=== PATIENT | male | born 1970 | race Caucasian/White ===

== ENCOUNTER 2019-11-02 03:31 | Inpatient (IN) | payer MEDICAID ==
[~2019-11-02] VITALS: Ht 167.6 cm; Wt 92.5 kg
[2019-11-02] MEDS ORDERED: IBUPROFEN 600MG TABLET PO STA (03:46)
[2019-11-02] MEDS ORDERED: SODIUM CHLORIDE 0.9% 1,000 ML IV ONE ×2 (03:46→13:43)
[2019-11-02 04:15] LABS: BASOPHILS % 0.6 % (0.0-2.0); EOSINOPHILS % 0.1 % (0.0-5.0); HEMATOCRIT. 40.3 % (42.0-52.0); LYMPHOCYTES % 16.1 % (20.0-50.0); MEAN CORPUSCULAR HEMOGLOBIN 26.1 pg (28.0-32.0); MEAN CORPUSCULAR VOLUME 81.1 fL (80.0-94.0); MEAN PLATELET VOLUME 7.4 fl (7.4-10.4); MONOCYTES % 3.4 % (2.0-8.0); NEUTROPHILS % 79.8 % (40.0-76.0); PLATELET 454 x1000/uL (130-400); RED BLOOD CELL COUNT 4.97 mill/uL (4.7-6.1); RED CELL DISTRIBUTION WIDTH 17.3 % (11.6-14.6)
[2019-11-02 04:17] LABS: CHLORIDE 101 mEq/L (98-107); PROTHROMBIN TIME 29.5 sec (9.6-11.0)
[2019-11-02] MEDS ORDERED: SODIUM CHLORIDE 0.9% 1000ML BAG (SEPSIS BOLUS) IV ONE (04:45)
[2019-11-02] MEDS ORDERED: LACTULOSE 20G/30ML UDC PO ONE (05:30)
[2019-11-02 05:38] LABS: CLARITY URINE TURBID (CLEAR); COLOR URINE DARK YELLOW (YELLOW); KETONES URINE NEGATIVE (NEGATIVE); LEUKOCYTE ESTERASE URINE NEGATIVE (NEGATIVE); NITRITE URINE NEGATIVE (NEGATIVE); OCCULT BLOOD URINE 2+ (NEGATIVE); PH URINE >=9.0 (4.5-8.0); PROTEIN URINE 3+ (NEGATIVE); SPECIFIC GRAVITY URINE 1.015 (1.005-1.030)
[2019-11-02] MEDS ORDERED: VANCOMYCIN 1 G PREMIX 200 ML IV SCH (06:30)
[2019-11-02] MEDS ORDERED: PIPERACILLIN/TAZOBACTAM 3.375GM/50ML PREMIX IV ONE (06:30)
[2019-11-02] MEDS ORDERED: IOHEXOL-300 100 ML BOTTLE ONE (06:45)
[2019-11-02] MEDS ORDERED: PIPERACILLIN/TAZ 3.375G PREMIX 50 ML IV SCH ×2 (07:00→14:00)
[2019-11-02] MEDS ORDERED: DIATR MEGLU/DIATRIZOATE SOLN 120ML ONE (12:29)
[2019-11-02] MEDS ORDERED: IOHEXOL-300 50 ML BOTTLE IV ONE (12:30)
[2019-11-02] MEDS ORDERED: ONDANSETRON HCL 4MG/2ML INJ IV PRN (12:45)
[2019-11-02] MEDS ORDERED: SODIUM CHLORIDE 0.9% 500 ML IV NR (13:42)
[2019-11-02 18:19] VITALS: BP 151/45
[2019-11-02 20:00] VITALS: BP 122/75
[2019-11-02] MEDS: ACETAMINOPHEN 325MG TABLET PO PRN (21:12)
[2019-11-02] MEDS: PIPERACILLIN/TAZOBACTAM 2.25 G in DEXTROSE 5% WATER 50 ML IV SCH (21:24)
[2019-11-02] MEDS: DEXT 5%/0.45% NACL 1000ML 1,000 ML IV SCH (21:32)
[2019-11-02 22:00] VITALS: BP 93/62
[2019-11-03] VITALS (11 sets, daily range): BP systolic 100–137; BP diastolic 50–65
[2019-11-03] MEDS: MORPHINE SULFATE 2 MG/ML CPJ (NOT FOR IM USE) IV PRN ×5 (00:39→18:30)
[2019-11-03] MEDS: PIPERACILLIN/TAZOBACTAM 2.25 G in DEXTROSE 5% WATER 50 ML IV SCH ×4 (01:12→20:34)
[2019-11-03] MEDS: DEXT 5%/0.45% NACL 1000ML 1,000 ML IV SCH ×3 (05:07→20:34)
[2019-11-03 06:27] LABS: BASOPHILS % 0.5 % (0.0-2.0); EOSINOPHILS % 0.5 % (0.0-5.0); HEMATOCRIT. 33.5 % (42.0-52.0); HEMOGLOBIN. 10.5 g/dL (14.0-18.0); LYMPHOCYTES % 15.2 % (20.0-50.0); MEAN CORPUSCULAR HEMOGLOBIN 25.5 pg (28.0-32.0); MEAN CORPUSCULAR VOLUME 81.4 fL (80.0-94.0); MEAN PLATELET VOLUME 7.6 fl (7.4-10.4); MONOCYTES % 4.9 % (2.0-8.0); NEUTROPHILS % 78.9 % (40.0-76.0); PLATELET 335 x1000/uL (130-400); RED BLOOD CELL COUNT 4.12 mill/uL (4.7-6.1); RED CELL DISTRIBUTION WIDTH 17.3 % (11.6-14.6)
[2019-11-03 06:43] LABS: CHLORIDE 107 mEq/L (98-107)
[2019-11-03] MEDS: ACETAMINOPHEN 325MG TABLET PO PRN ×2 (14:20→20:34)
[2019-11-03] MEDS ORDERED: VANCOMYCIN 1250MG in DEXTROSE 5% WATER 250ML IV SCH (17:00)
[2019-11-04] VITALS (12 sets, daily range): BP systolic 89–131; BP diastolic 32–68
[2019-11-04] MEDS: PIPERACILLIN/TAZOBACTAM 2.25 G in DEXTROSE 5% WATER 50 ML IV SCH ×5 (01:34→21:00)
[2019-11-04] MEDS: DEXT 5%/0.45% NACL 1000ML 1,000 ML IV SCH ×2 (04:43→18:54)
[2019-11-04] MEDS ORDERED: VANCOMYCIN 1 G PREMIX 200 ML IV SCH (05:00)
[2019-11-04] MEDS: ACETAMINOPHEN 325MG TABLET PO PRN (05:25)
[2019-11-04 09:49] LABS: BASOPHILS % 0.3 % (0.0-2.0); EOSINOPHILS % 0.5 % (0.0-5.0); HEMATOCRIT. 28.7 % (42.0-52.0); HEMOGLOBIN. 9.2 g/dL (14.0-18.0); LYMPHOCYTES % 7.9 % (20.0-50.0); MEAN CORPUSCULAR HEMOGLOBIN 25.8 pg (28.0-32.0); MEAN CORPUSCULAR VOLUME 80.6 fL (80.0-94.0); MEAN PLATELET VOLUME 7.5 fl (7.4-10.4); MONOCYTES % 3.5 % (2.0-8.0); NEUTROPHILS % 87.8 % (40.0-76.0); PLATELET 247 x1000/uL (130-400); RED BLOOD CELL COUNT 3.57 mill/uL (4.7-6.1); RED CELL DISTRIBUTION WIDTH 17.3 % (11.6-14.6)
[2019-11-04 09:54] LABS: CHLORIDE 109 mEq/L (98-107)
[2019-11-04 10:32] LABS: INR 3.6; PROTHROMBIN TIME 34.7 sec (9.6-11.0)
[2019-11-04] MEDS ORDERED: POTASSIUM CHLORIDE INJ 40 MEQ in DEXT 5% WATER 250 ML IV NR (13:00)
[2019-11-04] MEDS ORDERED: HYDROCODONE/ACETAMINOPHEN 5/325MG TABLET PO PRN (13:15)
[2019-11-04] MEDS: VANCOMYCIN 1 G PREMIX 200 ML IV SCH (18:40)
[2019-11-04] MEDS: MEROPENEM 1,000 MG in SODIUM CHLORIDE 0.9% 100 ML IV SCH (23:12)
[2019-11-05] VITALS (12 sets, daily range): BP systolic 112–154; BP diastolic 67–78
[2019-11-05] MEDS: VANCOMYCIN 1 G PREMIX 200 ML IV SCH ×2 (00:30→09:03)
[2019-11-05 08:57] LABS: BASOPHILS % 0.1 % (0.0-2.0); EOSINOPHILS % 1.6 % (0.0-5.0); HEMATOCRIT. 27.5 % (42.0-52.0); MEAN CORPUSCULAR HEMOGLOBIN 25.8 pg (28.0-32.0); MEAN CORPUSCULAR VOLUME 78.8 fL (80.0-94.0); MEAN PLATELET VOLUME 7.1 fl (7.4-10.4); MONOCYTES % 5.8 % (2.0-8.0); NEUTROPHILS % 81.5 % (40.0-76.0); PLATELET 316 x1000/uL (130-400); RED BLOOD CELL COUNT 3.48 mill/uL (4.7-6.1); RED CELL DISTRIBUTION WIDTH 17.1 % (11.6-14.6)
[2019-11-05] MEDS ORDERED: ENOXAPARIN 100MG/ML SYR SUBCUT SCH (09:00)
[2019-11-05] MEDS: MEROPENEM 1,000 MG in SODIUM CHLORIDE 0.9% 100 ML IV SCH ×2 (09:03→20:11)
[2019-11-05] MEDS: PANTOT AC/MIN OIL/PET HY-PHL OINT (AQUAPHOR) TOP SCH (09:04)
[2019-11-05 09:08] LABS: INR 3.9; PROTHROMBIN TIME 38.1 sec (9.6-11.0)
[2019-11-05 10:21] LABS: CHLORIDE 108 mEq/L (98-107)
[2019-11-05] MEDS ORDERED: LINEZOLID 600 MG PREMIX 300 ML IV SCH (12:00)
[2019-11-05] MEDS ORDERED: POTASSIUM CHLORIDE 20MEQ TABLET SR PO SCH (12:00)
[2019-11-05] MEDS ORDERED: POTASSIUM CHLORIDE INJ 40 MEQ in DEXT 5% WATER 250 ML IV SCH (13:00)
[2019-11-05] MEDS: GABAPENTIN 300MG CAPSULE PO SCH ×2 (13:19→21:52)
[2019-11-05] MEDS: BACLOFEN 10MG TABLET PO SCH ×2 (13:19→21:52)
[2019-11-05] MEDS: SIMETHICONE 80MG TABLET CHEW PO PRN ×2 (13:20→21:52)
[2019-11-05] MEDS: BISACODYL 10MG SUPP PR PRN (13:20)
[2019-11-05] MEDS ORDERED: MAGNESIUM 2 G PREMIX 50 ML IV SCH (14:00)
[2019-11-05] MEDS: DEXT 5%/0.45% NACL 1000ML 1,000 ML IV SCH (16:40)
[2019-11-05] MEDS: LINEZOLID 600 MG PREMIX 300 ML IV SCH (21:52)
[2019-11-06] VITALS (9 sets, daily range): BP systolic 107–134; BP diastolic 60–76
[2019-11-06] MEDS: MORPHINE SULFATE 2 MG/ML CPJ (NOT FOR IM USE) IV PRN ×4 (02:14→22:29)
[2019-11-06] MEDS: GABAPENTIN 300MG CAPSULE PO SCH ×3 (05:02→22:29)
[2019-11-06] MEDS: BACLOFEN 10MG TABLET PO SCH ×3 (05:02→22:29)
[2019-11-06 06:41] LABS: BASOPHILS % 0.5 % (0.0-2.0); EOSINOPHILS % 2.9 % (0.0-5.0); HEMATOCRIT. 29.4 % (42.0-52.0); HEMOGLOBIN. 9.4 g/dL (14.0-18.0); LYMPHOCYTES % 17.1 % (20.0-50.0); MEAN CORPUSCULAR HEMOGLOBIN 25.5 pg (28.0-32.0); MEAN CORPUSCULAR VOLUME 79.3 fL (80.0-94.0); MEAN PLATELET VOLUME 7.7 fl (7.4-10.4); MONOCYTES % 7.1 % (2.0-8.0); NEUTROPHILS % 72.4 % (40.0-76.0); PLATELET 382 x1000/uL (130-400); RED BLOOD CELL COUNT 3.71 mill/uL (4.7-6.1); RED CELL DISTRIBUTION WIDTH 17.3 % (11.6-14.6)
[2019-11-06 06:49] LABS: PROTHROMBIN TIME 40.1 sec (9.6-11.0)
[2019-11-06 07:18] LABS: CHLORIDE 106 mEq/L (98-107)
[2019-11-06 08:10] LABS: INR 4.2
[2019-11-06] MEDS: MEROPENEM 1,000 MG in SODIUM CHLORIDE 0.9% 100 ML IV SCH ×2 (08:41→20:43)
[2019-11-06] MEDS: PANTOT AC/MIN OIL/PET HY-PHL OINT (AQUAPHOR) TOP SCH (08:42)
[2019-11-06] MEDS ORDERED: POTASSIUM CHLORIDE 20MEQ TABLET SR PO SCH (10:15)
[2019-11-06] MEDS: LINEZOLID 600 MG PREMIX 300 ML IV SCH ×2 (10:32→22:29)
[2019-11-06] MEDS: SIMETHICONE 80MG TABLET CHEW PO PRN ×2 (11:47→22:38)
[2019-11-06] MEDS: BISACODYL 10MG SUPP PR PRN (12:06)
[2019-11-06 12:53] LABS: PHOSPHORUS 2.1 mg/dL (2.5-4.9)
[2019-11-06] MEDS: DEXT 5%/0.45% NACL 1000ML 1,000 ML IV SCH (14:22)
[2019-11-06] MEDS ORDERED: MAGNESIUM 2 G PREMIX 50 ML IV NR (18:00)
[2019-11-06] MEDS ORDERED: POTASSIUM PHOS,M-BASIC-D-BASIC 20 MMOL in DEXT 5% WATER 243.3333 ML IV NR (18:00)
[2019-11-07] VITALS: BP 103/60
[2019-11-07] MEDS: ACETAMINOPHEN 325MG TABLET PO PRN (00:48)
[2019-11-07 04:10] VITALS: BP 108/58
[2019-11-07] MEDS: MORPHINE SULFATE 2 MG/ML CPJ (NOT FOR IM USE) IV PRN ×3 (04:31→15:36)
[2019-11-07] MEDS: BACLOFEN 10MG TABLET PO SCH ×3 (05:53→21:49)
[2019-11-07] MEDS: GABAPENTIN 300MG CAPSULE PO SCH ×3 (05:53→21:53)
[2019-11-07 08:00] VITALS: BP 105/62
[2019-11-07] MEDS: PANTOT AC/MIN OIL/PET HY-PHL OINT (AQUAPHOR) TOP SCH (09:00)
[2019-11-07 09:24] LABS: BASOPHILS % 0.4 % (0.0-2.0); EOSINOPHILS % 4.4 % (0.0-5.0); HEMATOCRIT. 32.2 % (42.0-52.0); HEMOGLOBIN. 10.3 g/dL (14.0-18.0); LYMPHOCYTES % 15.6 % (20.0-50.0); MEAN CORPUSCULAR HEMOGLOBIN 25.3 pg (28.0-32.0); MEAN CORPUSCULAR VOLUME 79.3 fL (80.0-94.0); MEAN PLATELET VOLUME 7.5 fl (7.4-10.4); MONOCYTES % 7.6 % (2.0-8.0); PLATELET 388 x1000/uL (130-400); RED BLOOD CELL COUNT 4.07 mill/uL (4.7-6.1); RED CELL DISTRIBUTION WIDTH 17.3 % (11.6-14.6)
[2019-11-07 09:27] LABS: CHLORIDE 107 mEq/L (98-107)
[2019-11-07 09:46] LABS: INR 3.4; PROTHROMBIN TIME 33.2 sec (9.6-11.0)
[2019-11-07 10:00] VITALS: BP 111/60
[2019-11-07] MEDS: MEROPENEM 1,000 MG in SODIUM CHLORIDE 0.9% 100 ML IV SCH ×2 (10:10→23:40)
[2019-11-07] MEDS: LINEZOLID 600 MG PREMIX 300 ML IV SCH ×2 (10:10→21:53)
[2019-11-07] MEDS ORDERED: DIATR MEGLU/DIATRIZOATE SOLN 30ML PO SCH (11:30)
[2019-11-07] MEDS ORDERED: IOHEXOL-300 50 ML BOTTLE IV ONE (12:25)
[2019-11-07] MEDS: SIMETHICONE 80MG TABLET CHEW PO PRN (14:42)
[2019-11-07 16:00] VITALS: BP 128/73
[2019-11-07] MEDS ORDERED: BISACODYL 10MG SUPP PR PRN (19:00)
[2019-11-07] MEDS ORDERED: BISACODYL 10MG SUPP PR NR (19:23)
[2019-11-07 20:00] VITALS: BP 113/63
[2019-11-08] VITALS (13 sets, daily range): BP systolic 97–138; BP diastolic 51–80
[2019-11-08] MEDS: BACLOFEN 10MG TABLET PO SCH ×2 (06:15→14:22)
[2019-11-08] MEDS: GABAPENTIN 300MG CAPSULE PO SCH ×2 (06:15→14:18)
[2019-11-08] MEDS: SIMETHICONE 80MG TABLET CHEW PO PRN (06:21)
[2019-11-08] MEDS: MEROPENEM 1,000 MG in SODIUM CHLORIDE 0.9% 100 ML IV SCH ×2 (08:24→20:23)
[2019-11-08] MEDS: PANTOT AC/MIN OIL/PET HY-PHL OINT (AQUAPHOR) TOP SCH (08:25)
[2019-11-08] MEDS ORDERED: POTASSIUM CHLORIDE INJ 40 MEQ in DEXT 5% WATER 250 ML IV SCH (10:00)
[2019-11-08 10:05] LABS: BASOPHILS % 0.5 % (0.0-2.0); EOSINOPHILS % 4.5 % (0.0-5.0); HEMATOCRIT. 29.2 % (42.0-52.0); HEMOGLOBIN. 9.5 g/dL (14.0-18.0); LYMPHOCYTES % 13.6 % (20.0-50.0); MEAN CORPUSCULAR HEMOGLOBIN 25.6 pg (28.0-32.0); MEAN CORPUSCULAR VOLUME 78.6 fL (80.0-94.0); MEAN PLATELET VOLUME 6.9 fl (7.4-10.4); MONOCYTES % 6.2 % (2.0-8.0); NEUTROPHILS % 75.2 % (40.0-76.0); PLATELET 459 x1000/uL (130-400); RED BLOOD CELL COUNT 3.72 mill/uL (4.7-6.1); RED CELL DISTRIBUTION WIDTH 17.6 % (11.6-14.6)
[2019-11-08 10:08] LABS: CHLORIDE 106 mEq/L (98-107); INR 2.7; PROTHROMBIN TIME 26.3 sec (9.6-11.0)
[2019-11-08] MEDS: LINEZOLID 600 MG PREMIX 300 ML IV SCH (11:27)
[2019-11-08] MEDS: MORPHINE SULFATE 2 MG/ML CPJ (NOT FOR IM USE) IV PRN ×3 (12:21→20:23)
[2019-11-08] MEDS: DIPHENHYDRAMINE 25MG CAPSULE PO PRN ×2 (14:17→20:55)
== END 2019-11-08 23:19 | DRG 720 ==
LOC: ER 03:31 → EDBEDREQ 06:51 → EDBEDREQTM 06:51 → ENRESERV 16:09 → 5EST 18:06
PROVIDERS: ADMIT Internal Medicine Nephrology; ATTEND Internal Medicine Nephrology
DX: A41.9 Sepsis, unspecified organism (principal); N17.0 Acute kidney failure with tubular necrosis; E43 Unspecified severe protein-calorie malnutrition; E87.2 Acidosis; D68.9 Coagulation defect, unspecified; G82.20 Paraplegia, unspecified; E87.1 Hypo-osmolality and hyponatremia; I10 Essential (primary) hypertension; E66.9 Obesity, unspecified; N32.89 Other specified disorders of bladder; E87.6 Hypokalemia; K59.8 Other specified functional intestinal disorders; Z68.32 Body mass index [BMI] 32.0-32.9, adult; Z71.3 Dietary counseling and surveillance
CPT/HCPCS: 36415; 71045; 74176; 74177; 76770; 80048; 80053; 80202; 81003; 82962; 83036; 83605; 83735; 84100; 84134; 84145; 84484; 85025; 87070; 87077; 87186; 87804; 93005; 93306; 93970; 96365; 99291; A6261; J2020; J2185; J2270; J2405; J2543; J3370; J3475; J3480; J3490; J7030; J7040; J7050; J7060; Q0163; Q9963; Q9967

== ENCOUNTER 2019-11-09 15:45 | Inpatient (IN) | payer MEDICAID ==
[~2019-11-09] VITALS: Ht 162.6 cm; Wt 71.7 kg
[2019-11-09] MEDS ORDERED: LINEZOLID 600 MG PREMIX 300 ML IV STA (16:48)
[2019-11-09] MEDS ORDERED: MEROPENEM 1,000 MG in SODIUM CHLORIDE 0.9% 100 ML IV STA (16:48)
[2019-11-09] MEDS ORDERED: SODIUM CHLORIDE 0.9% 1000ML BAG (SEPSIS BOLUS) IV ONE (17:00)
[2019-11-09 18:48] LABS: BASOPHILS % 0.3 % (0.0-2.0); EOSINOPHILS % 3.8 % (0.0-5.0); HEMATOCRIT. 31.4 % (42.0-52.0); HEMOGLOBIN. 10.1 g/dL (14.0-18.0); LYMPHOCYTES % 17.3 % (20.0-50.0); MEAN CORPUSCULAR HEMOGLOBIN 25.5 pg (28.0-32.0); MEAN CORPUSCULAR VOLUME 79.1 fL (80.0-94.0); MEAN PLATELET VOLUME 7.4 fl (7.4-10.4); MONOCYTES % 4.8 % (2.0-8.0); NEUTROPHILS % 73.8 % (40.0-76.0); PLATELET 563 x1000/uL (130-400); RED BLOOD CELL COUNT 3.97 mill/uL (4.7-6.1); RED CELL DISTRIBUTION WIDTH 17.7 % (11.6-14.6)
[2019-11-09 18:55] LABS: CHLORIDE 105 mEq/L (98-107)
[2019-11-09 19:09] LABS: CLARITY URINE CLEAR (CLEAR); COLOR URINE YELLOW (YELLOW); KETONES URINE 2+ (NEGATIVE); LEUKOCYTE ESTERASE URINE TRACE (NEGATIVE); NITRITE URINE NEGATIVE (NEGATIVE); OCCULT BLOOD URINE NEGATIVE (NEGATIVE); PH URINE 7.5 (4.5-8.0); PROTEIN URINE 2+ (NEGATIVE); SPECIFIC GRAVITY URINE 1.013 (1.005-1.030); UROBILINOGEN URINE 0.2 E.U./dL (0.2-1.0)
[2019-11-09] MEDS ORDERED: ONDANSETRON HCL 4MG/2ML INJ IV STA (19:09)
[2019-11-09] MEDS ORDERED: MORPHINE SULFATE 4 MG/ML CPJ (NOT FOR IM USE) IV STA (19:09)
[2019-11-09] MEDS ORDERED: ONDANSETRON HCL 4MG/2ML INJ IV PRN (23:45)
[2019-11-09] MEDS ORDERED: MAGNESIUM/ALUMINUM HYDROXIDE/SIMETHICONE 30ML UDC PO PRN (23:45)
[2019-11-09] MEDS ORDERED: IPRATROPIUM/ALBUTEROL 0.5-3(2.5)MG/3ML NEB NEB PRN (23:45)
[2019-11-09] MEDS ORDERED: ACETAMINOPHEN 325MG TABLET PO PRN (23:45)
[2019-11-09] MEDS ORDERED: CLONIDINE 0.1MG TABLET PO PRN (23:45)
[2019-11-10] VITALS: BP 122/76
[2019-11-10 01:17] LABS: CHLORIDE 104 mEq/L (98-107)
[2019-11-10] MEDS ORDERED: LINE600T11 PO (01:27)
[2019-11-10] MEDS ORDERED: MERO500V IV (01:28)
[2019-11-10] MEDS ORDERED: GABA300C PO (01:29)
[2019-11-10] MEDS ORDERED: BACL-141 PO (01:29)
[2019-11-10] MEDS ORDERED: SIME180C47 PO (01:31)
[2019-11-10] MEDS: MEROPENEM 1,000 MG in SODIUM CHLORIDE 0.9% 100 ML IV SCH ×3 (04:32→23:15)
[2019-11-10] MEDS: HYDROCODONE/ACETAMINOPHEN 5/325MG TABLET PO PRN ×4 (04:50→22:58)
[2019-11-10] MEDS ORDERED: LINEZOLID 600 MG PREMIX 300 ML IV SCH (06:00)
[2019-11-10 06:16] LABS: BASOPHILS % 0.4 % (0.0-2.0); EOSINOPHILS % 5.3 % (0.0-5.0); HEMATOCRIT. 30.8 % (42.0-52.0); HEMOGLOBIN. 9.9 g/dL (14.0-18.0); LYMPHOCYTES % 15.3 % (20.0-50.0); MEAN CORPUSCULAR HEMOGLOBIN 25.3 pg (28.0-32.0); MEAN CORPUSCULAR VOLUME 78.5 fL (80.0-94.0); MEAN PLATELET VOLUME 6.6 fl (7.4-10.4); MONOCYTES % 6.7 % (2.0-8.0); NEUTROPHILS % 72.3 % (40.0-76.0); PLATELET 580 x1000/uL (130-400); RED BLOOD CELL COUNT 3.92 mill/uL (4.7-6.1); RED CELL DISTRIBUTION WIDTH 17.6 % (11.6-14.6)
[2019-11-10 07:59] VITALS: BP 113/75
[2019-11-10 12:00] VITALS: BP 110/53
[2019-11-10] MEDS ORDERED: SIMETHICONE 80MG TABLET CHEW PO PRN (13:00)
[2019-11-10] MEDS ORDERED: PIPERACILLIN/TAZOBACTAM 3.375 G in DEXT 5% WATER 100 ML IV SCH (13:00)
[2019-11-10] MEDS: BACLOFEN 10MG TABLET PO SCH ×2 (13:49→21:40)
[2019-11-10] MEDS: GABAPENTIN 300MG CAPSULE PO SCH ×2 (13:49→17:34)
[2019-11-10 16:00] VITALS: BP 110/50
[2019-11-10] MEDS: SIMETHICONE 80MG TABLET CHEW PO PRN (16:09)
[2019-11-10] MEDS: DIPHENHYDRAMINE 25MG CAPSULE PO PRN ×2 (16:09→22:30)
[2019-11-10] MEDS: LINEZOLID 600 MG PREMIX 300 ML IV SCH (18:14)
[2019-11-10 20:00] VITALS: BP 96/56
[2019-11-10] MEDS ORDERED: BISACODYL 10MG SUPP PR NR (22:00)
[2019-11-11 00:18] VITALS: BP 95/51
[2019-11-11 04:00] VITALS: BP 117/61
[2019-11-11] MEDS: BACLOFEN 10MG TABLET PO SCH ×3 (05:15→21:22)
[2019-11-11] MEDS: HYDROCODONE/ACETAMINOPHEN 5/325MG TABLET PO PRN ×4 (05:15→22:37)
[2019-11-11] MEDS: ENOXAPARIN 40MG/0.4ML SYR SUBCUT SCH (05:15)
[2019-11-11] MEDS: MEROPENEM 1,000 MG in SODIUM CHLORIDE 0.9% 100 ML IV SCH ×2 (06:17→14:08)
[2019-11-11] MEDS: LINEZOLID 600 MG PREMIX 300 ML IV SCH (06:28)
[2019-11-11] MEDS: DIPHENHYDRAMINE 25MG CAPSULE PO PRN ×3 (06:55→22:37)
[2019-11-11 08:00] VITALS: BP 108/71
[2019-11-11] MEDS: GABAPENTIN 300MG CAPSULE PO SCH ×3 (09:34→18:12)
[2019-11-11] MEDS: SIMETHICONE 80MG TABLET CHEW PO PRN ×2 (09:59→18:40)
[2019-11-11 12:00] VITALS: BP 106/10
[2019-11-11 16:00] VITALS: BP 102/66
[2019-11-11 20:00] VITALS: BP 112/81
[2019-11-12] VITALS: BP 96/75
[2019-11-12 04:00] VITALS: BP 100/77
[2019-11-12] MEDS: BISACODYL 10MG SUPP PR PRN (05:07)
[2019-11-12] MEDS: BACLOFEN 10MG TABLET PO SCH ×3 (05:07→21:16)
[2019-11-12] MEDS: DIPHENHYDRAMINE 25MG CAPSULE PO PRN ×3 (05:59→21:17)
[2019-11-12] MEDS: HYDROCODONE/ACETAMINOPHEN 5/325MG TABLET PO PRN ×3 (06:00→21:17)
[2019-11-12 07:57] LABS: CHLORIDE 105 mEq/L (98-107)
[2019-11-12 08:00] VITALS: BP 114/98
[2019-11-12] MEDS: GABAPENTIN 300MG CAPSULE PO SCH ×3 (09:02→17:55)
[2019-11-12] MEDS: ENOXAPARIN 40MG/0.4ML SYR SUBCUT SCH (09:03)
[2019-11-12] MEDS: PANTOT AC/MIN OIL/PET HY-PHL OINT (AQUAPHOR) TOP SCH (09:04)
[2019-11-12] MEDS: NYSTATIN POWDER 15GM TOP SCH ×3 (09:04→17:55)
[2019-11-12 12:34] LABS: BASOPHILS % 0.5 % (0.0-2.0); EOSINOPHILS % 5.2 % (0.0-5.0); HEMATOCRIT. 30.2 % (42.0-52.0); HEMOGLOBIN. 9.9 g/dL (14.0-18.0); LYMPHOCYTES % 18.2 % (20.0-50.0); MEAN CORPUSCULAR HEMOGLOBIN 25.9 pg (28.0-32.0); MEAN CORPUSCULAR VOLUME 79.3 fL (80.0-94.0); MEAN PLATELET VOLUME 6.5 fl (7.4-10.4); MONOCYTES % 6.9 % (2.0-8.0); NEUTROPHILS % 69.2 % (40.0-76.0); PLATELET 558 x1000/uL (130-400); RED BLOOD CELL COUNT 3.81 mill/uL (4.7-6.1); RED CELL DISTRIBUTION WIDTH 17.8 % (11.6-14.6)
[2019-11-12 16:00] VITALS: BP 120/62
[2019-11-12 20:00] VITALS: BP 112/72
[2019-11-13] VITALS: BP 115/76
[2019-11-13 04:00] VITALS: BP 118/72
[2019-11-13] MEDS: BISACODYL 10MG SUPP PR PRN (05:38)
[2019-11-13] MEDS: DIPHENHYDRAMINE 25MG CAPSULE PO PRN ×3 (05:38→21:58)
[2019-11-13] MEDS: HYDROCODONE/ACETAMINOPHEN 5/325MG TABLET PO PRN ×3 (05:38→21:59)
[2019-11-13] MEDS: BACLOFEN 10MG TABLET PO SCH ×3 (05:39→21:51)
[2019-11-13] MEDS: SIMETHICONE 80MG TABLET CHEW PO PRN ×2 (06:30→22:23)
[2019-11-13 06:51] LABS: BASOPHILS % 0.7 % (0.0-2.0); EOSINOPHILS % 4.5 % (0.0-5.0); HEMATOCRIT. 32.8 % (42.0-52.0); HEMOGLOBIN. 10.6 g/dL (14.0-18.0); LYMPHOCYTES % 19.2 % (20.0-50.0); MEAN CORPUSCULAR HEMOGLOBIN 25.9 pg (28.0-32.0); MEAN CORPUSCULAR VOLUME 80.3 fL (80.0-94.0); MEAN PLATELET VOLUME 6.8 fl (7.4-10.4); MONOCYTES % 4.9 % (2.0-8.0); NEUTROPHILS % 70.7 % (40.0-76.0); PLATELET 599 x1000/uL (130-400); RED BLOOD CELL COUNT 4.08 mill/uL (4.7-6.1); RED CELL DISTRIBUTION WIDTH 17.6 % (11.6-14.6)
[2019-11-13 08:00] VITALS: BP 103/65
[2019-11-13 08:14] LABS: CHLORIDE 106 mEq/L (98-107)
[2019-11-13] MEDS: GABAPENTIN 300MG CAPSULE PO SCH ×3 (08:52→18:10)
[2019-11-13] MEDS: PANTOT AC/MIN OIL/PET HY-PHL OINT (AQUAPHOR) TOP SCH (08:53)
[2019-11-13] MEDS: ENOXAPARIN 40MG/0.4ML SYR SUBCUT SCH (08:53)
[2019-11-13] MEDS: NYSTATIN POWDER 15GM TOP SCH ×3 (08:53→18:12)
[2019-11-13 12:00] VITALS: BP 116/62
[2019-11-14] MEDS: HYDROCODONE/ACETAMINOPHEN 5/325MG TABLET PO PRN ×3 (05:51→21:03)
[2019-11-14] MEDS: DIPHENHYDRAMINE 25MG CAPSULE PO PRN ×3 (05:51→21:02)
[2019-11-14] MEDS: BACLOFEN 10MG TABLET PO SCH ×3 (05:51→21:02)
[2019-11-14] MEDS: SIMETHICONE 80MG TABLET CHEW PO PRN ×2 (05:51→21:03)
[2019-11-14 06:25] LABS: CHLORIDE 106 mEq/L (98-107)
[2019-11-14 06:30] LABS: BASOPHILS % 0.7 % (0.0-2.0); EOSINOPHILS % 4.2 % (0.0-5.0); HEMATOCRIT. 31.7 % (42.0-52.0); HEMOGLOBIN. 10.2 g/dL (14.0-18.0); LYMPHOCYTES % 23.3 % (20.0-50.0); MEAN CORPUSCULAR HEMOGLOBIN 25.7 pg (28.0-32.0); MEAN PLATELET VOLUME 6.8 fl (7.4-10.4); MONOCYTES % 7.3 % (2.0-8.0); NEUTROPHILS % 64.5 % (40.0-76.0); PLATELET 601 x1000/uL (130-400); RED BLOOD CELL COUNT 3.97 mill/uL (4.7-6.1); RED CELL DISTRIBUTION WIDTH 17.9 % (11.6-14.6)
[2019-11-14 08:00] VITALS: BP 112/69
[2019-11-14] MEDS: ENOXAPARIN 40MG/0.4ML SYR SUBCUT SCH (10:06)
[2019-11-14] MEDS: GABAPENTIN 300MG CAPSULE PO SCH ×3 (10:06→17:00)
[2019-11-14 12:00] VITALS: BP 104/65
[2019-11-14 16:12] VITALS: BP 110/71
[2019-11-15] VITALS: BP 113/70
[2019-11-15 04:00] VITALS: BP 111/62
[2019-11-15] MEDS: BACLOFEN 10MG TABLET PO SCH ×3 (06:39→21:15)
[2019-11-15] MEDS: DIPHENHYDRAMINE 25MG CAPSULE PO PRN ×2 (06:39→21:21)
[2019-11-15] MEDS: SIMETHICONE 80MG TABLET CHEW PO PRN ×2 (06:39→21:21)
[2019-11-15 06:48] LABS: BASOPHILS % 0.8 % (0.0-2.0); EOSINOPHILS % 3.6 % (0.0-5.0); HEMATOCRIT. 34.9 % (42.0-52.0); HEMOGLOBIN. 11.5 g/dL (14.0-18.0); LYMPHOCYTES % 19.2 % (20.0-50.0); MEAN CORPUSCULAR HEMOGLOBIN 26.2 pg (28.0-32.0); MEAN CORPUSCULAR VOLUME 79.7 fL (80.0-94.0); MEAN PLATELET VOLUME 7.2 fl (7.4-10.4); MONOCYTES % 6.7 % (2.0-8.0); NEUTROPHILS % 69.7 % (40.0-76.0); PLATELET 503 x1000/uL (130-400); RED BLOOD CELL COUNT 4.38 mill/uL (4.7-6.1); RED CELL DISTRIBUTION WIDTH 17.4 % (11.6-14.6)
[2019-11-15 08:00] VITALS: BP 100/73
[2019-11-15] MEDS: PANTOT AC/MIN OIL/PET HY-PHL OINT (AQUAPHOR) TOP SCH (09:00)
[2019-11-15] MEDS: NYSTATIN POWDER 15GM TOP SCH ×3 (09:00→17:00)
[2019-11-15 09:14] LABS: CHLORIDE 105 mEq/L (98-107)
[2019-11-15] MEDS: GABAPENTIN 300MG CAPSULE PO SCH ×3 (09:16→17:17)
[2019-11-15] MEDS: ENOXAPARIN 40MG/0.4ML SYR SUBCUT SCH (09:16)
[2019-11-15] MEDS: ASCORBIC ACID 500 MG TABLET PO SCH (09:16)
[2019-11-15] MEDS: ZINC SULFATE 220 MG ( 50 ) CAPSULE PO SCH (09:16)
[2019-11-15 12:16] VITALS: BP 116/63
[2019-11-15] MEDS: HYDROCODONE/ACETAMINOPHEN 5/325MG TABLET PO PRN ×3 (13:14→21:16)
[2019-11-15 16:07] VITALS: BP 128/71
[2019-11-15 20:00] VITALS: BP 113/71
[2019-11-16] VITALS: BP 112/70
[2019-11-16 04:00] VITALS: BP 120/80
[2019-11-16] MEDS: BACLOFEN 10MG TABLET PO SCH ×3 (05:33→21:04)
[2019-11-16] MEDS: HYDROCODONE/ACETAMINOPHEN 5/325MG TABLET PO PRN ×4 (05:34→22:35)
[2019-11-16] MEDS: DIPHENHYDRAMINE 25MG CAPSULE PO PRN ×4 (05:34→22:35)
[2019-11-16 07:33] LABS: CHLORIDE 103 mEq/L (98-107)
[2019-11-16 07:49] LABS: BASOPHILS % 0.8 % (0.0-2.0); EOSINOPHILS % 4.4 % (0.0-5.0); HEMATOCRIT. 33.3 % (42.0-52.0); HEMOGLOBIN. 10.5 g/dL (14.0-18.0); LYMPHOCYTES % 22.7 % (20.0-50.0); MEAN CORPUSCULAR HEMOGLOBIN 25.4 pg (28.0-32.0); MEAN CORPUSCULAR VOLUME 80.5 fL (80.0-94.0); MEAN PLATELET VOLUME 6.7 fl (7.4-10.4); MONOCYTES % 7.2 % (2.0-8.0); NEUTROPHILS % 64.9 % (40.0-76.0); PLATELET 583 x1000/uL (130-400); RED BLOOD CELL COUNT 4.13 mill/uL (4.7-6.1); RED CELL DISTRIBUTION WIDTH 17.7 % (11.6-14.6)
[2019-11-16 08:00] VITALS: BP 113/78
[2019-11-16] MEDS: ASCORBIC ACID 500 MG TABLET PO SCH (09:41)
[2019-11-16] MEDS: BISACODYL 10MG SUPP PR PRN (09:41)
[2019-11-16] MEDS: GABAPENTIN 300MG CAPSULE PO SCH ×3 (09:41→16:23)
[2019-11-16] MEDS: ZINC SULFATE 220 MG ( 50 ) CAPSULE PO SCH (09:41)
[2019-11-16] MEDS: ENOXAPARIN 40MG/0.4ML SYR SUBCUT SCH (09:42)
[2019-11-16] MEDS: PANTOT AC/MIN OIL/PET HY-PHL OINT (AQUAPHOR) TOP SCH (09:45)
[2019-11-16] MEDS: NYSTATIN POWDER 15GM TOP SCH ×3 (09:45→17:00)
[2019-11-16] MEDS: SIMETHICONE 80MG TABLET CHEW PO PRN ×2 (10:19→22:35)
[2019-11-16 12:00] VITALS: BP 120/68
[2019-11-16 16:00] VITALS: BP 122/84
[2019-11-16 20:00] VITALS: BP 114/73
[2019-11-17] VITALS: BP 116/69
[2019-11-17 04:00] VITALS: BP 120/68
[2019-11-17] MEDS: BACLOFEN 10MG TABLET PO SCH ×3 (06:10→22:07)
[2019-11-17] MEDS: HYDROCODONE/ACETAMINOPHEN 5/325MG TABLET PO PRN ×3 (06:11→14:41)
[2019-11-17] MEDS: DIPHENHYDRAMINE 25MG CAPSULE PO PRN ×3 (06:11→22:22)
[2019-11-17] MEDS: SIMETHICONE 80MG TABLET CHEW PO PRN ×3 (06:11→22:22)
[2019-11-17 08:00] VITALS: BP 105/75
[2019-11-17] MEDS: BISACODYL 10MG SUPP PR PRN (10:10)
[2019-11-17] MEDS: ENOXAPARIN 40MG/0.4ML SYR SUBCUT SCH (10:10)
[2019-11-17] MEDS: ASCORBIC ACID 500 MG TABLET PO SCH (10:10)
[2019-11-17] MEDS: ZINC SULFATE 220 MG ( 50 ) CAPSULE PO SCH (10:10)
[2019-11-17] MEDS: GABAPENTIN 300MG CAPSULE PO SCH ×3 (10:11→17:28)
[2019-11-17] MEDS: NYSTATIN POWDER 15GM TOP SCH ×3 (10:16→17:30)
[2019-11-17] MEDS: PANTOT AC/MIN OIL/PET HY-PHL OINT (AQUAPHOR) TOP SCH (10:16)
[2019-11-17 12:00] VITALS: BP 121/65
[2019-11-17 16:00] VITALS: BP 121/65
[2019-11-17 20:00] VITALS: BP 105/59
[2019-11-17] MEDS: HYDROCODONE/ACETAMINOPHEN 10/325MG TABLET PO PRN (22:22)
[2019-11-18] VITALS: BP 121/78
[2019-11-18 04:00] VITALS: BP 118/72
[2019-11-18] MEDS: BACLOFEN 10MG TABLET PO SCH ×3 (05:53→22:40)
[2019-11-18 08:00] VITALS: BP 130/81
[2019-11-18] MEDS: ASCORBIC ACID 500 MG TABLET PO SCH (09:48)
[2019-11-18] MEDS: ENOXAPARIN 40MG/0.4ML SYR SUBCUT SCH (09:48)
[2019-11-18] MEDS: PANTOT AC/MIN OIL/PET HY-PHL OINT (AQUAPHOR) TOP SCH (09:48)
[2019-11-18] MEDS: ZINC SULFATE 220 MG ( 50 ) CAPSULE PO SCH (09:48)
[2019-11-18] MEDS: GABAPENTIN 300MG CAPSULE PO SCH ×3 (09:48→16:32)
[2019-11-18] MEDS: NYSTATIN POWDER 15GM TOP SCH ×2 (09:49→16:34)
[2019-11-18] MEDS: SIMETHICONE 80MG TABLET CHEW PO PRN (10:05)
[2019-11-18] MEDS: HYDROCODONE/ACETAMINOPHEN 10/325MG TABLET PO PRN ×3 (10:06→22:41)
[2019-11-18 12:00] VITALS: BP 128/74
[2019-11-18] MEDS: DIPHENHYDRAMINE 25MG CAPSULE PO PRN (13:18)
[2019-11-18 16:00] VITALS: BP 111/71
[2019-11-18] MEDS: BISACODYL 10MG SUPP PR PRN (16:32)
[2019-11-18 20:00] VITALS: BP 110/72
[2019-11-19] VITALS: BP 121/85
[2019-11-19] MEDS: DIPHENHYDRAMINE 25MG CAPSULE PO PRN ×4 (00:13→23:09)
[2019-11-19 04:00] VITALS: BP 132/87
[2019-11-19] MEDS: SIMETHICONE 80MG TABLET CHEW PO PRN ×3 (05:32→22:50)
[2019-11-19] MEDS: HYDROCODONE/ACETAMINOPHEN 10/325MG TABLET PO PRN ×4 (05:32→22:50)
[2019-11-19] MEDS: BACLOFEN 10MG TABLET PO SCH ×3 (05:32→21:39)
[2019-11-19 06:20] LABS: CHLORIDE 104 mEq/L (98-107)
[2019-11-19 07:21] LABS: BASOPHILS % 0.9 % (0.0-2.0); EOSINOPHILS % 4.6 % (0.0-5.0); HEMATOCRIT. 32.6 % (42.0-52.0); HEMOGLOBIN. 10.4 g/dL (14.0-18.0); LYMPHOCYTES % 29.3 % (20.0-50.0); MEAN CORPUSCULAR HEMOGLOBIN 25.5 pg (28.0-32.0); MEAN CORPUSCULAR VOLUME 80.2 fL (80.0-94.0); MEAN PLATELET VOLUME 6.9 fl (7.4-10.4); MONOCYTES % 10.1 % (2.0-8.0); NEUTROPHILS % 55.1 % (40.0-76.0); PLATELET 469 x1000/uL (130-400); RED BLOOD CELL COUNT 4.07 mill/uL (4.7-6.1); RED CELL DISTRIBUTION WIDTH 18.4 % (11.6-14.6)
[2019-11-19 08:00] VITALS: BP 114/71
[2019-11-19] MEDS: ASCORBIC ACID 500 MG TABLET PO SCH (08:53)
[2019-11-19] MEDS: ZINC SULFATE 220 MG ( 50 ) CAPSULE PO SCH (08:53)
[2019-11-19] MEDS: ENOXAPARIN 40MG/0.4ML SYR SUBCUT SCH (08:53)
[2019-11-19] MEDS: NYSTATIN POWDER 15GM TOP SCH ×3 (08:53→16:08)
[2019-11-19] MEDS: GABAPENTIN 300MG CAPSULE PO SCH ×3 (08:53→16:08)
[2019-11-19] MEDS: PANTOT AC/MIN OIL/PET HY-PHL OINT (AQUAPHOR) TOP SCH (08:53)
[2019-11-19 12:00] VITALS: BP 133/83
[2019-11-19] MEDS: BISACODYL 10MG SUPP PR PRN (12:05)
[2019-11-19 16:00] VITALS: BP 122/73
[2019-11-19 20:00] VITALS: BP 115/72
[2019-11-19] MEDS: LACTOBACILLUS GG CAPSULE PO SCH (20:36)
[2019-11-20] VITALS: BP 116/76
[2019-11-20 04:00] VITALS: BP 114/65
[2019-11-20] MEDS: HYDROCODONE/ACETAMINOPHEN 10/325MG TABLET PO PRN ×2 (05:24→11:33)
[2019-11-20] MEDS: BACLOFEN 10MG TABLET PO SCH ×3 (05:24→21:30)
[2019-11-20] MEDS: DIPHENHYDRAMINE 25MG CAPSULE PO PRN ×3 (05:42→17:45)
[2019-11-20 08:00] VITALS: BP 110/77
[2019-11-20] MEDS: ENOXAPARIN 40MG/0.4ML SYR SUBCUT SCH (08:50)
[2019-11-20] MEDS: ASCORBIC ACID 500 MG TABLET PO SCH (08:50)
[2019-11-20] MEDS: ZINC SULFATE 220 MG ( 50 ) CAPSULE PO SCH (08:50)
[2019-11-20] MEDS: PANTOT AC/MIN OIL/PET HY-PHL OINT (AQUAPHOR) TOP SCH (08:51)
[2019-11-20] MEDS: LACTOBACILLUS GG CAPSULE PO SCH (08:51)
[2019-11-20] MEDS: NYSTATIN POWDER 15GM TOP SCH ×3 (08:51→17:45)
[2019-11-20] MEDS: GABAPENTIN 300MG CAPSULE PO SCH ×3 (08:51→17:45)
[2019-11-20] MEDS: SIMETHICONE 80MG TABLET CHEW PO PRN ×2 (08:51→17:45)
[2019-11-20] MEDS: BISACODYL 10MG SUPP PR PRN (11:33)
[2019-11-20 12:00] VITALS: BP 114/69
[2019-11-20 16:00] VITALS: BP 118/76
[2019-11-20 20:00] VITALS: BP 119/90
[2019-11-21] VITALS: BP 117/80
[2019-11-21 04:00] VITALS: BP 134/74
[2019-11-21] MEDS: BACLOFEN 10MG TABLET PO SCH ×3 (05:20→21:02)
[2019-11-21] MEDS: HYDROCODONE/ACETAMINOPHEN 10/325MG TABLET PO PRN ×3 (06:38→21:01)
[2019-11-21] MEDS: DIPHENHYDRAMINE 25MG CAPSULE PO PRN ×3 (06:38→22:24)
[2019-11-21 07:06] LABS: CHLORIDE 106 mEq/L (98-107)
[2019-11-21 08:00] VITALS: BP 115/74
[2019-11-21 08:03] LABS: BASOPHILS % 1.2 % (0.0-2.0); EOSINOPHILS % 4.5 % (0.0-5.0); HEMATOCRIT. 32.4 % (42.0-52.0); HEMOGLOBIN. 10.5 g/dL (14.0-18.0); LYMPHOCYTES % 29.7 % (20.0-50.0); MEAN CORPUSCULAR HEMOGLOBIN 26.3 pg (28.0-32.0); MEAN PLATELET VOLUME 7.3 fl (7.4-10.4); MONOCYTES % 9.4 % (2.0-8.0); NEUTROPHILS % 55.2 % (40.0-76.0); PLATELET 401 x1000/uL (130-400); RED CELL DISTRIBUTION WIDTH 18.4 % (11.6-14.6)
[2019-11-21] MEDS: LACTOBACILLUS GG CAPSULE PO SCH (08:23)
[2019-11-21] MEDS: ASCORBIC ACID 500 MG TABLET PO SCH (08:23)
[2019-11-21] MEDS: ZINC SULFATE 220 MG ( 50 ) CAPSULE PO SCH (08:23)
[2019-11-21] MEDS: GABAPENTIN 300MG CAPSULE PO SCH ×3 (08:23→17:07)
[2019-11-21] MEDS: PANTOT AC/MIN OIL/PET HY-PHL OINT (AQUAPHOR) TOP SCH (08:24)
[2019-11-21] MEDS: ENOXAPARIN 40MG/0.4ML SYR SUBCUT SCH (08:24)
[2019-11-21] MEDS: NYSTATIN POWDER 15GM TOP SCH ×3 (08:25→17:07)
[2019-11-21 12:00] VITALS: BP 119/80
[2019-11-21] MEDS: BISACODYL 10MG SUPP PR PRN (13:25)
[2019-11-21] MEDS: SIMETHICONE 80MG TABLET CHEW PO PRN ×2 (13:25→22:25)
[2019-11-21 16:00] VITALS: BP 140/84
[2019-11-21] MEDS ORDERED: NA PHOS,M-B/NA PHOS,DI-BA ENEMA 118ML PR NR (17:45)
[2019-11-21 20:00] VITALS: BP 116/73
[2019-11-22] VITALS: BP 119/76
[2019-11-22] MEDS: HYDROCODONE/ACETAMINOPHEN 10/325MG TABLET PO PRN ×2 (03:28→09:32)
[2019-11-22 04:00] VITALS: BP 119/75
[2019-11-22] MEDS: BACLOFEN 10MG TABLET PO SCH ×2 (05:45→13:02)
[2019-11-22] MEDS: DIPHENHYDRAMINE 25MG CAPSULE PO PRN ×2 (05:45→13:02)
[2019-11-22 08:00] VITALS: BP 110/79
[2019-11-22] MEDS: ASCORBIC ACID 500 MG TABLET PO SCH (09:30)
[2019-11-22] MEDS: NYSTATIN POWDER 15GM TOP SCH ×3 (09:30→17:26)
[2019-11-22] MEDS: SIMETHICONE 80MG TABLET CHEW PO PRN (09:30)
[2019-11-22] MEDS: GABAPENTIN 300MG CAPSULE PO SCH ×3 (09:30→17:26)
[2019-11-22] MEDS: PANTOT AC/MIN OIL/PET HY-PHL OINT (AQUAPHOR) TOP SCH (09:30)
[2019-11-22] MEDS: LACTOBACILLUS GG CAPSULE PO SCH (09:31)
[2019-11-22] MEDS: ZINC SULFATE 220 MG ( 50 ) CAPSULE PO SCH (09:32)
[2019-11-22] MEDS: ENOXAPARIN 40MG/0.4ML SYR SUBCUT SCH (09:33)
[2019-11-22 12:00] VITALS: BP 110/77
[2019-11-22 16:00] VITALS: BP 119/74
[2019-11-22 18:02] VITALS: BP 119/74
== END 2019-11-22 18:20 | DRG 720 ==
LOC: ER 15:45 → 7WST 21:21 → ENRESERV 21:49 → 6EST 11-19 11:07
PROVIDERS: ADMIT Internal Medicine; ATTEND Internal Medicine
DX: A41.9 Sepsis, unspecified organism (principal); E43 Unspecified severe protein-calorie malnutrition; N17.9 Acute kidney failure, unspecified; L89.156 Pressure-induced deep tissue damage of sacral region; D72.1 Eosinophilia; G82.20 Paraplegia, unspecified; T83.518A Infection and inflammatory reaction due to other urinary catheter, initial encounter; K76.0 Fatty (change of) liver, not elsewhere classified; E66.9 Obesity, unspecified; L85.3 Xerosis cutis; N36.8 Other specified disorders of urethra; B37.49 Other urogenital candidiasis; B95.2 Enterococcus as the cause of diseases classified elsewhere; R82.4 Acetonuria; R80.9 Proteinuria, unspecified; Z16.21 Resistance to vancomycin; I10 Essential (primary) hypertension; D50.9 Iron deficiency anemia, unspecified; D47.3 Essential (hemorrhagic) thrombocythemia; Y84.6 Urinary catheterization as the cause of abnormal reaction of the patient, or of later complication, without mention of misadventure at the time of the procedure; Y92.89 Other specified places as the place of occurrence of the external cause; Z68.27 Body mass index [BMI] 27.0-27.9, adult; Z71.3 Dietary counseling and surveillance
CPT/HCPCS: 36415; 71045; 74176; 76700; 80048; 80053; 80061; 81003; 83605; 83880; 84134; 84145; 84443; 84484; 85025; 87106; 93005; 93970; 99285; A6261; J1650; J2020; J2185; J2270; J2405; J7030; J7050; Q0163